=== PATIENT | male | born 1965 | race Caucasian/White ===

== ENCOUNTER 2017-11-27 08:00 | Outpatient (RCR) | payer MEDICAID, SELFPAY | END 2017-11-27 08:01 | disposition home or self-care (01) | LOC: PT 08:00 | PROVIDERS: Visit Provider Orthopaedic Surgery | DX: M48.061 Spinal stenosis, lumbar region without neurogenic claudication (principal) | CPT/HCPCS: 97010; 97014; 97110; 97140; 97163; G0283 ==

== ENCOUNTER 2018-06-07 12:41 | Emergency (ER) | payer MEDICAID, SELFPAY ==
[2018-06-07 12:47] VITALS: BP 153/88; PULSE 80; RESP 20; TEMP 36.8; O2SAT 100; BMI 27.8
--- NOTE | 2018-06-07 13:15 | XR_ITS ---
XR hip LT 2-3V w/pelvis Ordering Physician: Hemanth Mathews MD Patient Age: 53 years: Male HISTORY: ITS.REASON: pain TECHNIQUE: AP and frog-leg view left hip. AP pelvis COMPARISON :No previous left hip study but . FINDINGS Left hip. AP and frog-leg view reveal no fracture. The joint spaces well-maintained. Femoral head normal contour and density. Left hip joint space appears satisfactory. AP pelvis. The left hemipelvis is unremarkable. There is borderline to slight narrowing superior joint space at the right hip. The posterior pelvis appears satisfactory. Sacrum, iliac bones, pubis unremarkable bilaterally. Incidental note is made of partially imaged laminectomy L4 extending through the L4/5 level IMPRESSION: Left hip intact. No fracture. No acute findings left hip or pelvis Left hip joint space well maintained Osseous pelvis intact. Only note borderline narrowing superior right hip joint space. Previous laminectomy lower L-spine involving L4/5, & L4 likely up to the L3/4 level
--- NOTE | 2018-06-07 14:34 | [facility].EDGENADL ---
ED Disposition Clinical Impression: Pain of left lower extremity Disposition: Home, Self-Care Condition on Discharge: Good Additional Instructions: Percocet and prednisone as prescribed. Follow-up with your orthopedic doctor on Friday as scheduled. Additional instructions for CONTROLLED SUBSTANCES: You have been prescribed a medication that is a controlled substance. Controlled substances include pain medications known as opiates and sedative nerve medications known as benzodiazepines. Some common opiates include: Codeine (such as Tylenol #3) Hydrocodone (Vicodin, Lortab, Lorcet, [place]) Oxycodone (Percocet, Percodan, Oxycodone, Oxy IR) Some common benzodiazepines include: Diazepam (Valium) Lorazepam (Ativan) Alprazolam (Xanax) Clonazepam (Klonopin) Oxazepam (Serax) All of these controlled substances are highly addictive and frequently abused. Misuse can and frequently does lead to addiction as well as overdose and . Medication should be stored in a locked cabinet or other secure storage unit. Do not store the medication in a motor vehicle. Short term supplies, 3 days or less, are prescribed because of the highly addictive nature of the medication. Any of the controlled substance medication NOT taken should be disposed of properly and NOT SAVED. The recommended method of disposing of unused medications is: Place the medicines in a sealable plastic bag. If the medicine is a solid, crush it or add water to dissolve it. Add something undesirable (cat litter, coffee grounds, etc.) Dispose of sealed bag in household trash Do not flush or pour unused medicines down a sink or drain. Controlled substances should not be shared, given away or sold. Because of the addictive nature and frequent abuse, these medications are sometimes stolen. These medications should be kept in a safe place where they cannot be stolen. Do not keep them in your car or purse. Lost or stolen prescriptions for controlled substances WILL NOT BE REFILLED in this emergency department, regardless of whether a police report was filed. Prescriptions: Oxycodone HCl/Acetaminophen [Percocet 5/325mg tablet] 1 tab PO Q6HP PRN #20 tab PRN Reason: Moderate To Severe Pain predniSONE [Prednisone 10mg Tab Dose-Pack] 10 mg PO DAILY #42 pack Referrals: Ramesh Tong [Primary Care Provider] - - Critical Care Critical Care Time: No Attestation: On 06/07/18, the high probability of a clinically significant, sudden or life threatening deterioration of the following system(s) required my full and direct attention, intervention and personal management. The time I documented below is in addition to time spent performing reported procedures but includes the following listed in this critical care notation. Medical Decision Making - Christian Inquiry Pt receiving controlled substance: Yes Christian was queried for this patient: Yes Reference #:: [id number] Risks and benefits of using a controlled substance: were discussed with pt by me Comment: 8 rxs. last rx 50 percocet on 05/13/18 Vital Signs: 06/07/18 12:47 Temperature 98.3 F Temperature Source Oral Pulse Rate [Left Radial] 80 Respiratory Rate 20 Blood Pressure [Right Arm] 153/88 H Blood Pressure Mean [Right Arm] 109 Blood Pressure Source [Right Arm] Automatic Cuff Blood Pressure Position [Right Arm] Supine 02 Sat by Pulse Oximetry 100 Oxygen Delivery Method Room Air Orders (Tests/Meds): ED MEDICATIONS Discontinued Medications Generic Name Dose Route Start Last Admin Trade Name Aminata PRN Reason Stop Dose Admin Dexamethasone Sodium Phosphate 8 mg 06/07/18 14:45 Decadron 4mg/Ml 1ml Vial IM 06/07/18 14:46 ONCE ONE Hydromorphone HCl 2 mg 06/07/18 14:45 Dilaudid 2mg/Ml Syringe IM 06/07/18 14:46 ONCE ONE Ondansetron HCl 4 mg 06/07/18 14:45 Zofran 4mg/2ml Vial IM 06/07/18 14:46 ONCE O
[2018-06-07 15:10] VITALS: BP 124/78; PULSE 72; RESP 16; TEMP 36.6; O2SAT 98
== END 2018-06-07 15:11 | disposition home or self-care (01) ==
PROVIDERS: Emergency Provider Emergency Medicine; PCP Orthopaedic Surgery
DX: M79.605 Pain in left leg (principal); E11.9 Type 2 diabetes mellitus without complications; Z79.4 Long term (current) use of insulin; Z79.84 Long term (current) use of oral hypoglycemic drugs
CPT/HCPCS: 73502; 96372; 99282; J2405

== ENCOUNTER 2018-07-07 08:00 | Outpatient (RCR) | payer MEDICAID, SELFPAY | END 2018-07-07 08:05 | disposition home or self-care (01) | LOC: PT 08:00 | PROVIDERS: Visit Provider Orthopaedic Surgery | DX: M54.5 Low back pain (principal); M54.16 Radiculopathy, lumbar region; M79.605 Pain in left leg | CPT/HCPCS: 97010; 97014; 97035; 97110; 97140; 97163; 97164; G0283 ==